=== PATIENT | female | born 1965 | race Asian ===

== ENCOUNTER 2019-07-02 17:03 | Emergency (ER) | payer OTHER ==
[~2019-07-02] VITALS: Ht 33 cm; Wt 0.5 kg
[2019-07-02 17:31] LABS: PLATELET COUNT 253 K/uL (152-353)
[2019-07-02 17:45] LABS: POTASSIUM 3.7 mmol/L (3.6-5.2); SODIUM 139 mmol/L (136-145)
[2019-07-02 21:41] VITALS: BP 126/73; TEMP 98.2
== END 2019-07-02 21:45 | disposition short-term general hospital (02) ==
LOC: ED 17:03
PROVIDERS: Emergency Medicine
DX: K92.2 Gastrointestinal hemorrhage, unspecified (principal); R55 Syncope and collapse
CPT/HCPCS: 80053; 82272; 83735; 84484; 85027; 93005; 96360; 96375; 99284; J3490

== ENCOUNTER 2019-07-02 21:41 | Outpatient (CLI) | payer OTHER | END 2019-07-02 22:16 | disposition short-term general hospital (02) | LOC: AMB 21:41 | DX: K92.2 Gastrointestinal hemorrhage, unspecified (principal); R94.31 Abnormal electrocardiogram [ECG] [EKG] | CPT/HCPCS: A0425; A0427 ==